=== PATIENT | female | born 1985 | race Caucasian/White ===

== ENCOUNTER 2019-01-27 05:00 | Inpatient (IN) | payer MEDICAID ==
[~2019-01-27] VITALS: Ht 154.9 cm; Wt 87.1 kg
[~2019-01-27 05:00] MED LIST: ACYC400T2 PO; CALC500T PO; NITR-58 PO; PHEN-538 PO; PREN1TAB31 PO
[2019-01-27 05:15] VITALS: BP 118/68; PULSE 73; RESP 17
[2019-01-27 05:25] VITALS: Ht 154.9 cm; Wt 87.1 kg
[2019-01-27] MEDS ORDERED: OXYTOCIN 30 UNITS/LR 500 ML IV PRN (09:30)
[2019-01-27] MEDS ORDERED: CARBOPROST 250 MCG INJ IM PRN (09:30)
[2019-01-27] MEDS ORDERED: METHYLERGONOVINE 0.2 MG INJ IM PRN (09:30)
[2019-01-27] MEDS ORDERED: BUTORPHANOL 1 MG INJ IV PRN (09:30)
[2019-01-27] MEDS ORDERED: OXYTOCIN 30 UNITS/LR 500 ML IV SCH (09:30)
[2019-01-27] MEDS ORDERED: MISOPROSTOL 200 MCG TAB PR PRN (09:30)
[2019-01-27] MEDS ORDERED: LIDOCAINE 1% (MPF) 30 ML INJ INJ PRN (09:30)
[2019-01-27] MEDS ORDERED: BUTORPHANOL 2 MG INJ IV PRN (09:30)
[2019-01-27] MEDS: LACTATED RINGER'S 1,000 ML IV SCH ×3 (09:48→21:35)
[2019-01-27] MEDS ORDERED: AMPICILLIN 2 GM/NS (PMX) 100 ML IVPB ONE (10:00)
[2019-01-27] MEDS: AMPICILLIN 1 GM/NS (PMX) 50 ML IVPB SCH ×3 (15:15→22:54)
--- NOTE | 2019-01-27 17:04 | HP ---
Date/Time of Note Date/Time of Note DATE: 01/27/19 TIME: 16:55 OB - History Hx of Present Free Text/Dictation 33 years old with single intrauterine at 38 weeks and 3 days complaining of vaginal spotting and uterine contractions. She states good movement. She denies nausea, vomiting, shortness of breath, chest pain, headache, visual changes or LOF. Chief Complaint: Uterine contractions and vaginal spotting Estimated Due Date: Feb 07, 2019 : 5 Para: 4 Spontaneous : 0 Therapeutic : 0 Care: Good Care Ultrasounds: Normal mid trimester US Obstetrical Complications: None Medical Complications: None Past Family/Social History * Past Medical, Surgical, Family and Obstetric Histories reviewed from chart. OB Admission Exam Vital Signs Vital Signs Vital Signs Date Temp Pulse Resp B/P (MAP) Pulse Ox O2 O2 Flow FiO2 Time Delivery Rate 01/27/19 97.9 73 17 118/68 Room Air 05:15 (85) Physical Exam HEENT: WNL Heart: Rhythm Normal Lungs: Clear Abdomen: WNL Extremities: Normal Cervical Dilatation: 3cm Effacement: 50% Station: -2 Membranes: Intact Heart Rate: 130's Accelerations: Accelerations Present Decelerations: No Decelerations Varibility: Moderate Contractions on Admission: < 5 Minutes Apart Intensity: Moderate Last 72 hours Lab Results CBC & BMP 01/27/19 06:15 01/27/19 09:38 Hemoglobin A1C Test 01/27/19 06:15 Hemoglobin A1c 5.2 OB Assessment/Plan Other plan: 33 years old 5 para 4004 with single intrauterine at 38 weeks and 3 days in early labor. - FHR: No sign of metabolic acidosis- Category I - Continuous EFM, toco - CBC, blood type and screen - Vaginal exam initially in triage was /-3 repeat exam , 315-2 cephalic intact - Analgesia options with R/B/A discussed in detail with patient - Epidural per patient request - Please see the orders - O+/Rubella: Immune - GBS: Positive, ampicillin ordered. 2) Anemia: Recommend ferrous sulfate 325 mg twice daily p.o. for 4 months and continue vitamin 3) Review of her chart, she had hemoglobin A1c 6.6 during visit. Repeat hemoglobin A1c during current admission is 5.2. Need 75 g 2-hour glucose test at 6-12 weeks after delivery. Admission, procedures, expectations, risks and possible complications have been discussed in detail with the patient. Risk of vaginal delivery including but not limited to bleeding, infection, cervical laceration, placental retention, injury to fetus, blood transfusion, blood transfusion related infection, risk of anesthesia, adhesion, cervical laceration, episiotomy/laceration, possible delivery with risk of bleeding, infection, injury to other organs (bowel, bladder, ureter, vessels, nerves), injury to fetus, blood transfusion, blood transfusion related infection, risk of anesthesia, scar and hernia formation, needs for future , removal of uterus or any other indicated surgery discussed with the patient. She expressed understanding and repeats the risks. All of her questions were answered. She signed the informed consent. PHYSICIAN'S VERIFICATION OF INFORMED CONSENT The patient was counseled regarding the procedure, its indications, risks, potential complications and alternatives and any questions were answered. Consent was obtained. MIGUEL LAND Jan 27, 2019 17:04
--- NOTE | 2019-01-27 20:44 | PREAC ---
Date/Time of Note Date/Time of Note DATE: 01/27/19 TIME: 20:42 Anesthesia Eval and Record Evaluation Time Pre-Procedure Interview DATE: 01/27/19 TIME: 20:42 Age 33 Sex female NPO: 8 hrs Preoperative diagnosis IUP Planned procedure L&D Epidural Past Medical History Past Medical History: None Surgery & Anesthesia Issues No known issue Meds Anticoagulation: No Beta Marsha within 24 hr: No Reason Beta Marsha not given: Pt. not on B-Marsha Active Scripts Acyclovir* (Acyclovir*) 400 Mg Tablet, 400 MG PO TID for 7 Days, TAB Prov:ROHAN GALAN [employer] NECKTIE OPERATOR 05/16/15 Phenazopyridine Hcl* (Pyridium*) 200 Mg Tab, 200 MG PO TID PRN for DYSURIA, #6 TAB Prov:ROHAN GALAN [employer] NECKTIE OPERATOR 05/16/15 Nitrofurantoin Monohyd Macrocr* (Macrobid*) 100 Mg Capsr, 100 MG PO BID for 7 Days, CAP Prov:ROHAN GALAN [employer] NECKTIE OPERATOR 05/16/15 Reported Medications Calcium Carbonate* (Os-Atul 500*) 1 Tab Tablet, 1 TAB PO DAILY, TAB 09/24/14 Vits #90-Iron Fum-FA ( Formula) 1 Each Tablet, 1 TAB PO DAILY, TAB 09/24/14 Current Medications Lactated Ringer's 1,000 ml @ 125 mls/hr Q8H IV Last administered on 01/27/19at 17:00; Admin Dose 125 MLS/HR; Start 01/27/19 at 09:01 Butorphanol Tartrate (Stadol) 1 mg Q2H PRN IV .PAIN; Start 01/27/19 at 09:30 Butorphanol Tartrate (Stadol) 2 mg Q2H PRN IV .PAIN; Start 01/27/19 at 09:30 Lidocaine (Xylocaine 1% (Mpf)) 30 ml ONCE PRN INJ .EPISIOTOMY; Start 01/27/19 at 09:30 Oxytocin/Lactated Ringer's 500 ml @ 500 mls/hr ONCE POST IV ; Start 01/27/19 at 09:30 Oxytocin/Lactated Ringer's 500 ml @ 125 mls/hr POST IV ; Start 01/27/19 at 09:30 Oxytocin/Lactated Ringer's 500 ml @ 0 mls/hr ONCE PRN IV .VAGINAL BLEEDING; Start 01/27/19 at 09:30 Methylergonovine Maleate (Methergine) 0.2 mg ONCE PRN IM .VAGINAL BLEEDING; Start 01/27/19 at 09:30 Carboprost Tromethamine (Hemabate) 250 mcg ONCE PRN IM .VAGINAL BLEEDING; Start 01/27/19 at 09:30 Misoprostol (Cytotec) 1,000 mcg ONCE PRN WA .VAGINAL BLEEDING; Start 01/27/19 at 09:30 Ampicillin 50 ml @ 100 mls/hr Q4 IVPB Last administered on 01/27/19at 19:01; Admin Dose 100 MLS/HR; Start 01/27/19 at 13:00 Meds reviewed: Yes Allergies Coded Allergies: No Known Drug Allergy (Verified Allergy, Unknown, 01/27/19) Allergies Reviewed: Yes Labs/Studies Labs Reviewed: Reviewed by anesthesiologist Result Diagram: 01/27/19 0938 01/27/19 0615 Laboratory Tests 01/27/19 06:15 01/27/19 09:38 Blood Bank Test 01/27/19 09:38 Antibody Screen NEGATIVE Blood Type O POSITIVE Rh Immune Globulin Candidate NO test: Positive Studies: ECG Pre-procedure Exam Last vitals Vital Signs Date Temp Pulse Resp B/P (MAP) Pulse Ox O2 O2 Flow FiO2 Time Delivery Rate 01/27/19 97.9 73 17 118/68 Room Air 05:15 (85) Airway: Adequate mouth opening, Adequate thyromental dist Mallampati: Mallampati II Teeth: Normal Lung: Normal Heart: Normal ASA Physical Status ASA physical status: 2 Emergency: None Planned Anesthetic Neuraxial: Epidural Pre-operative Attestations Prior to commencing anesthesia and surgery, the patient was re-evaluated, there was verification of: *The patient's identity *The results of appropriate recent lab work and preoperative vital signs *The above evaluation not changing prior to induction *Anesthetic plan, risk benefits, alternative and complications discussed with patient/family; questions answered; patient/family understands, accepts and wishes to proceed. MAYDA ZARAGOZA MD Jan 27, 2019 20:44
[2019-01-27] MEDS ORDERED: FENTAnyl 2MCG/ML-ROPIV 0.2% 100 ML ONE (20:46)
[2019-01-27] MEDS ORDERED: DIPHENHYDRAMINE 50 MG INJ IV PRN (21:00)
[2019-01-27] MEDS ORDERED: FENTAnyl 2MCG/ML-ROPIV 0.2% 100 ML BAG EPI SCH (21:00)
[2019-01-27] MEDS ORDERED: NALOXONE (0.4 MG/ML) INJ IV PRN (21:00)
[2019-01-27] MEDS ORDERED: ONDANSETRON 4 MG INJ IV PRN (21:00)
[2019-01-28] MEDS: AMPICILLIN 1 GM/NS (PMX) 50 ML IVPB SCH ×5 (02:54→16:48)
[2019-01-28] MEDS: LACTATED RINGER'S 1,000 ML IV SCH ×2 (04:29→17:01)
[2019-01-28] MEDS ORDERED: OXYTOCIN 30 UNITS/LR 500 ML IV SCH (07:00)
[2019-01-28] MEDS ORDERED: MINERAL OIL LIGHT 10 ML VIAL TOP ONE (07:30)
[2019-01-28] MEDS: LACTATED RINGER'S 1,000 ML IV* SCH ×2 (07:41→15:41)
--- NOTE | 2019-01-28 07:41 | LDN ---
Date/Time of Note Date/Time of Note DATE: 01/28/19 TIME: 07:39 Delivery Summary s/p of viable female over intact perineum, placenta delivered intact and spontaneously. EBL 300 ml Placenta Delivered: Spontaneously Episiotomy: No Perineal laceration: 0 Anesthesia type: Epidural Estimated blood loss: 300 Sponge & Needle done & correct: Yes All needle counts correct: Yes Any foreign bodies felt in the: No Delivery Information Sex Infant Sex: female Apgars 1 Minute: 9 5 Minute: 9 Suctioning Nose & mouth suctioned at tamiko: No Delee suction performed: No Umbilical Cord Umbilical cord with: 3 Vessels Cord presentations: no nuchal cord Nuchal cord present X: 0 Cord Blood was obtained: Yes Mother & Baby Disposition Disposition Mom & Baby to Maternity; Good: Yes CHIDI KELLER MD Jan 28, 2019 07:41
[2019-01-28] MEDS ORDERED: LANOLIN HPA 1 PKT TOP PRN (08:00)
[2019-01-28] MEDS ORDERED: DIPHENHYDRAMINE 25 MG CAP PO PRN (08:00)
[2019-01-28] MEDS ORDERED: CARBOPROST 250 MCG INJ IM PRN (08:00)
[2019-01-28] MEDS ORDERED: NA PHOSPHATE/BIPHOS 133 ML ENEMA PR PRN (08:00)
[2019-01-28] MEDS ORDERED: MISOPROSTOL 200 MCG TAB PR PRN (08:00)
[2019-01-28] MEDS ORDERED: ONDANSETRON 4 MG INJ IV PRN (08:00)
[2019-01-28] MEDS ORDERED: MAGNESIUM HYDROXIDE 30ML CUP PO PRN (08:00)
[2019-01-28] MEDS ORDERED: DIBUCAINE 1% 30 GM OINT TOP PRN (08:00)
[2019-01-28] MEDS ORDERED: DIPHENHYDRAMINE 50 MG INJ IV PRN (08:00)
[2019-01-28] MEDS ORDERED: SENNA/DOCUSATE NA (8.6MG/50MG) TAB PO PRN (08:00)
[2019-01-28] MEDS ORDERED: WITCH HAZEL/GLYCERIN PAD PR PRN (08:00)
[2019-01-28] MEDS ORDERED: OXYTOCIN 30 UNITS/LR 500 ML IV PRN (08:00)
[2019-01-28] MEDS ORDERED: ONDANSETRON 4 MG TAB PO PRN (08:00)
[2019-01-28] MEDS ORDERED: HYDROCODONE/APAP (5/325) TAB PO PRN ×2 (08:00)
[2019-01-28] MEDS ORDERED: BENZOCAINE 20% 56 ML SPRAY TOP PRN (08:00)
[2019-01-28] MEDS: OXYTOCIN 30 UNITS/LR 500 ML IV SCH ×2 (08:25→13:09)
[2019-01-28] MEDS: SENNA/DOCUSATE NA (8.6MG/50MG) TAB PO SCH ×2 (09:00→21:27)
[2019-01-28 12:54] VITALS: BP 101/56; PULSE 65
[2019-01-28] MEDS: IBUPROFEN 600 MG TAB PO SCH ×2 (13:06→17:34)
[2019-01-28 15:00] VITALS: BP 99/52; PULSE 68; RESP 16
[2019-01-28 20:30] VITALS: BP 99/59; PULSE 65; RESP 18
[2019-01-29] MEDS: IBUPROFEN 600 MG TAB PO SCH ×4 (00:21→18:10)
[2019-01-29] MEDS: LACTATED RINGER'S 1,000 ML IV SCH ×2 (02:38→09:01)
[2019-01-29] MEDS: LACTATED RINGER'S 1,000 ML IV* SCH ×2 (02:38→07:41)
[2019-01-29 04:16] VITALS: BP 101/61; PULSE 65; RESP 18
[2019-01-29 08:45] VITALS: BP 119/60; PULSE 60; RESP 18
[2019-01-29] MEDS: SENNA/DOCUSATE NA (8.6MG/50MG) TAB PO SCH (09:09)
--- NOTE | 2019-01-29 13:33 | PAC ---
Date/Time of Note Date/Time of Note DATE: 01/29/19 TIME: 13:32 Post-Anesthesia Notes Post-Anesthesia Note Last documented vital signs Vital Signs Date Temp Pulse Resp B/P (MAP) Pulse Ox O2 O2 Flow FiO2 Time Delivery Rate 01/29/19 Room Air 12:20 01/29/19 98.3 60 18 119/60 08:45 (79) Activity: WNL Respiratory function: WNL Cardiovascular function: WNL Mental status: Baseline Pain reasonably controlled: Yes Hydration appropriate: Yes Nausea/Vomiting absent: Yes Comments BP:112/67, P:88, Spo2:100%, T:98,7 MAYDA ZARAGOZA MD Jan 29, 2019 13:33
[2019-01-29 16:30] VITALS: BP 118/66
--- NOTE | 2019-01-29 16:56 | QN ---
Documentation Comment no c/o had bowel movement vss afebrile fundus firm lochia min calf neg for tenderness A #1 P as ordered HIMANSHU HOOVER MD Jan 29, 2019 16:56
[2019-01-29 20:00] VITALS: BP 113/72; PULSE 61; RESP 18
[2019-01-30] MEDS: IBUPROFEN 600 MG TAB PO SCH ×3 (00:37→11:55)
[2019-01-30] MEDS: SENNA/DOCUSATE NA (8.6MG/50MG) TAB PO SCH ×2 (00:37→09:58)
[2019-01-30 05:05] VITALS: BP 99/69; PULSE 68; RESP 18
[2019-01-30 08:20] VITALS: BP 100/66; PULSE 59; RESP 18
[2019-01-30] MEDS ORDERED: FERROUS GLUCONATE (EC) 325 MG TAB PO SCH (09:00)
[2019-01-30] MEDS ORDERED: MEASLES,MUMPS,RUBELLA VACCINE INJ SC* ONE (09:00)
[2019-01-30] MEDS ORDERED: VARICELLA VACCINE LIVE/PF 1,350 UNIT/0.5 ML ML SC* ONE (09:00)
[2019-01-30] MEDS ORDERED: DIPHTH/TET/ACEL PERTUSS (ADULT) 0.5 ML VIAL IM* ONE (09:00)
--- NOTE | 2019-01-30 09:11 | DS ---
Date/Time of Note Date/Time of Note DATE: 01/30/19 TIME: 09:09 Obstetrical Discharge Record Final Diagnosis Final Diagnosis: Term delivered Vaginal Delivery Obstetrical Delivery: Spontaneous Complications Induction: No Condition on Discharge Physical Assessment Last Vitals: T=97.9 BP 99/69 Voiding: Yes Bowel Movement: Yes Breast: Soft, non-tender Fundus: Firm Calf Tenderness: No Patient Condition: Good ROCÍO AYALA MD Jan 30, 2019 09:11
--- NOTE | 2019-01-30 09:18 | PD.PPDC ---
STRATEGIC MARKETING LEADER Discharge Instruction Condition [id number] Patient Condition: [id number] Good Diet [id number] Diet: Demqm0q Resume Regular Diet Activity/Restrictions [id number] Activity: Hligm1s Normal Activity [id number] Restrictions: Ggmyn5w No Sexual Activity Nothing in the Vagina No [place] No Tampons, douche Follow-up Follow-up with Physician: 6, Week/Weeks Return to clinic for [id number] SUPPORT ASSOCIATE Instructions: Iuxyg7u Fever greater than 101 Chills Worsening abdominal pain Excessive Vaginal Bleeding [id number] OB Instructions: [id number] Breast Tenderness Depression ROCÍO AYALA MD Jan 30, 2019 09:18
--- NOTE | 2019-01-31 14:33 | DELSUM ---
Delivery Summary A-C Datetime Report Generated by CPN: 01/31/2019 14:33 DELIVERY PERSONNEL Epic [facility] Specialists: [place], May MATERNAL INFORMATION Delivery Anesthesia: Epidural Medications in Delivery: LR with 30 units of pitocin Delivery QBL (ml): 361 Placenta Cultured: No Maternal Complications: None LABOR SUMMARY EDC: 02/07/2019 00:00 No. Babies in Womb: 1 Attempted: No Labor Anesthesia: Epidural LABOR INFORMATION Reason for Induction: Not Applicable Onset of Labor: 01/27/2019 07:45 Complete Dilatation: 01/28/2019 07:22 Oxytocin: N/A Group B Beta Strep: Positive Antibiotics # of Doses: 6 Antibiotics Time of Last Dose: 01/28/2019 06:58 Steroids Given: None Reason Steroids Not Administered: Not Applicable MEMBRANES Membranes Rupture Method: Spontaneous Rupture of Membranes: 01/28/2019 05:10 Length of Rupture (hr): 2.35 Amniotic Fluid Color: Clear Amniotic Fluid Amount: Moderate Amniotic Fluid Odor: None STAGES OF LABOR Stage 1 hr: 23 Stage 1 min: 37 Stage 2 hr: 0 Stage 2 min: 9 Stage 3 hr: 0 Stage 3 min: 4 Total Time in Labor hr: 23 Total Time in Labor min: 50 VAGINAL DELIVERY Episiotomy: None Laceration Extension: N/A Laceration Type: None Laceration Repair: Not Applicable Initial Vag Sponge Count: 10 Final Vag Sponge Count: 10 Initial Vag Sharps Count: 1 Final Vag Sharps Count: 1 Sponge Count Correct: Yes; Vaginal Sweep Performed Sharps Count Correct: Yes BABY A INFORMATION Delivery Date/Time: 01/28/2019 07:31 Method of Delivery: Vaginal Born in Route : No : N/A Forceps: N/A Vacuum Extraction: N/A Shoulder Dystocia : N/A SHOULDER DYSTOCIA BABY A Infant Delivery Date/Time: 01/28/2019 07:31 PRESENTATION/POSITION BABY A Presentation: Cephalic Cephalic Presentation: Vertex Vertex Position: Left Occipital Anterior Breech Presentation: N/A PLACENTA INFORMATION BABY A Placenta Delivery Time : 01/28/2019 07:35 Placenta Method of Delivery: Spontaneous Placenta Status: Delivered SCORES BABY A Heart Rate 1 min: >100 bpm Resp Effort 1 min: Good Cry Reflex Irritability 1 min: Cough/Sneeze/Pulls Away Muscle Tone 1 min: Active Motion Color 1 min: Body [place], Extremit Blue Resuscitation Effort 1 min: Tactile Stimulation SCORE 1 MIN: 9 Heart Rate 5 min: >100 bpm Resp Effort 5 min: Good Cry Reflex Irritability 5 min: Cough/Sneeze/Pulls Away Muscle Tone 5 min: Active Motion Color 5 min: Body [place], Extremit Blue Resuscitation Effort 5 min: Tactile Stimulation SCORE 5 MIN: 9 INFORMATION BABY A Gestational Age at Delivery: 38.4 Gestational Status: Early Term- 37- 38.6 Weeks Outcome : Liveborn Infant Condition : Stable Infant Sex: Female IDENTIFICATION/MEDS BABY A ID Band Number: [id number] ID Band Location: Right Leg; Left Arm Sensor Applied: Yes Sensor Number: [id number] Sensor Location : Cord Clamp Vitamin K Given : Not Given Erythromycin Given: Not Given WEIGHT/LENGTH BABY A Infant Birthweight (gm): 2895 Infant Weight (lb): 6 Infant Weight (oz): 6 Length (in): 19.00 Infant Length (cm): 48.26 CORD INFORMATION BABY A No. Cord Vessels: 3 Nuchal Cord : N/A Cord Blood Taken: Yes Suction: Mouth; Nose ASSESSMENT BABY A Infant Complications: None Physical Findings at Delivery: Within Normal Limits Respirations: Appears Normal [employer] Signal And Switch Operator/ALS Called : No Care By: MARTÍNEZ Transferred To: Remains with Mother
== END 2019-01-30 14:30 | disposition home or self-care (01) | DRG 807 ==
LOC: OBT 05:00 → L-D 05:00 → OBT 09:10 → MS1 01-28 15:12 → PP1 01-29 19:10
PROVIDERS: ADMIT Obstetrics & Gynecology; ATTEND Obstetrics & Gynecology
PROC: 10E0XZZ Delivery of Products of Conception, External Approach (ICD-10-PCS; principal; 2019-01-28)
DX: O99.824 Streptococcus B carrier state complicating childbirth (principal); Z37.0 Single live birth; Z3A.38 38 weeks gestation of pregnancy; Z23 Encounter for immunization
CPT/HCPCS: 76815; 76818; 81001; 82947; 83036; 85025; 85610; 85730; 86592; 86850; 86900; 86901; 90715; 90716; G0463; J0290; J0595; J2210; J2590; J3010; J7120